=== PATIENT | male | born 1995 | race Caucasian/White ===

== ENCOUNTER 2023-03-08 14:28 | Emergency (ER) | payer SELFPAY ==
[2023-03-08 14:41] VITALS: BP 132/81; PULSE 82; RESP 14; TEMP 37.1; O2SAT 99; BMI 25.1
--- NOTE | 2023-03-08 15:00 | PC.PHAR ---
pt states he takes no rx or otc medications-pt states he hasnt taken prazosin 5mg hs filled 05/14/22 30d/s propranolol 10mg bid prn filled 05/14/22 30d/s and sertraline 50mg 3 tabs daily filled 05/14/22 30d/s states not taken since may 2022
--- NOTE | 2023-03-08 15:04 | W.ED.UPPEXIN ---
HPI - Extremity Injury (Upper) General: Chief Complaint: Extremity Injury, Upper Stated Complaint: right hand injury, fall Time Seen by Provider: 03/08/23 14:48 Source: patient Mode of arrival: ambulatory Limitations: no limitations History of Present Illness: Patient is a 27-year-old male who presents to the emergency department complaining of right hand pain onset 0900 this morning. Patient was walking [place] the [place] when he suddenly tripped over a stick and fell onto his outstretched right hand. He states his right middle finger was reportedly dislocated, and he states he was able to pop it back into place. Since this he has had residual right third MCP pain with radiation into the palm. At rest, he states that the pain is throbbing on the ventral aspect of the hand, but making a fist causes pain on the dorsal aspect of the hand. He denies any numbness, weakness, tingling, bruising, or any other symptoms at this time. There is no pain beyond the hand into the wrist or forearm. He denies taking anything for pain or applying ice. He reports no other injuries at this time. complaint: injury to: right and hand Onset (ago): hour(s) Other Extremity Injury: Right: hand Other injuries: none Place: home Severity: moderate Relieving factors: immobilization Exacerbating factors: movement of extremity Context: fall Associated symptoms: Denies neck pain, numbness or weakness in extremities Review of Systems Const: Denies: fever(s) or chills Eyes: Denies: change in vision or blurry vision Card: Denies: chest pain, palpitations, irregular heart rhythm, lightheadedness, syncope or dyspnea on exertion Resp: Denies: dyspnea, productive cough or pain on inspiration GI: Denies: abdominal pain, nausea, vomiting, heartburn or diarrhea : Denies: difficulty urinating or dysuria Musc: Reports: extremity pain (Right hand) and extremity swelling (Right hand); Denies: neck pain or back pain Skin/Breast: Denies: rash Neuro: Denies: numbness in extremities or weakness in extremities Physical Exam Const: COMMON NORMALS: no acute distress, average body habitus, patient oriented x3, no limitations, healthy appearing, alert and well nourished HENMT: COMMON NORMALS: normocephalic and atraumatic HEAD & SCALP: normocephalic and atraumatic Neck/C-Spine: COMMON NORMALS: full ROM CERVICAL SPINE: No Cervical spine tenderness Back/Pelvis: COMMON NORMALS: thoracic and lumbar spine normal to inspection and no thoracic nor lumbar tenderness Extremity: COMMON NORMALS: capillary refill normal GENERAL: Yes normal exam except as noted RIGHT UPPER EXTREMITY: Yes hand & digits Right hand and digits: Yes inspection (Mild edema noted to the dorsal aspect of the right hand), Yes palpation (TTP of the right third MCP and distal third metacarpal), Yes ROM exam (Limited range of motion of 3rd digit due to pain near MCP/metacarpal) and Yes neurovascular exam (Neurovascularly intact) Neuro: COMMON NORMALS: patient oriented x3, moves all extremities, no focal motor deficits and no sensory deficits noted SENSORIUM/ORIENTATION: Yes alert Skin: TRAUMA: no lacerations or abrasions Course Vital Signs: Vital signs: Vital Signs Temperature 98.8 F 03/08/23 14:41 Pulse Rate 82 03/08/23 14:41 Respiratory Rate 14 03/08/23 14:41 Blood Pressure 132/81 03/08/23 14:41 Pulse Oximetry 99 03/08/23 14:41 Oxygen Delivery Me thod Room Air 03/08/23 14:41 MDM - Extremity Injury (Upper) Medical Decision Making XR showing a nondisplaced midshaft third metacarpal fracture. Patient will be placed in a splint and will follow-up with orthopedics. [facility] management referral made for this. He states he has [facility] so he will speak to the [facility] to see if they want him to follow-up with anyone in particular. He denies needing any pain medication prescription. Discharge Plan Discharge Patient Disposition: Home Clinical Impression: Fracture, metacarpal Qualifiers: Encounter type: initial encounter Metacarpal bone: third Fracture type: closed Metacarpal location: shaft Fracture alignment: nondisplaced Laterality: right Qualified Code(s): S62.352A - Nondisplaced fracture of shaft of third metacarpal bone, right hand, initial encounter for closed fracture Condition: Stable Prescriptions: No Action No Known Home Medications Discharge Orders: Discharge ED (Routine); Ordered 03/08/23 Ordered By: Shellie Waddell Patient Instructions: Hand Fracture (DC) Activity Restrictions/Additional Instructions: Please keep on splint until follow-up with orthopedic. As we discussed, you will discussed with the [facility] in regards to specialty follow-up. You may take [id number] ibuprofen or Tylenol for pain as needed. Coding Level of Care Code ED Geospatial Developer for José Miguel Clayton
--- NOTE | 2023-03-08 15:10 | XR_ITS ---
WS: [id number] RIGHT HAND: 3 VIEW(S) TECHNIQUE: PA, oblique and lateral. HISTORY: hand trauma/possible dislocation COMPARISON: None available. Acute fractures through the mid third metacarpal diaphysis. No significant displacement. No additiona l fractures. Mild soft tissue edema along the dorsal surface of the hand. IMPRESSION: Nondisplaced fracture mid diaphysis third metacarpal.
--- NOTE | 2023-03-09 10:25 | DCPLANNER ---
Addendum entered by Loraine Cervantes 03/26/23 10:36: Patient did attend this appointment with ortho Addendum entered by Loraine Cervantes 03/24/23 14:14: Patient has a follow up appointment scheduled for February at 10:00 with Blake Azar at ortho. 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 He has to get a primary care provider with them (he said he tried to call [facility] today also but they didnt answer so he will try again) He said he will discuss the fx with that provider and then we can take it from there after he gets established. Original Note: pig farm manager had message to schedule a follow up appointment for patient with ortho. pig farm manager sent patients information to the front office staff at ortho. Patients information will be printed and reviewed. Clinic will call patient with appointment information.
--- NOTE | 2023-03-09 13:19 | DCPLANNER ---
music store manager called patient due to no primary care physician - patient stated that he sees Tracee at the [facility].
== END 2023-03-08 16:25 | disposition home or self-care (01) ==
PROVIDERS: Emergency Provider Physician Assistant; PCP Nurse Practitioner
DX: S62.352A Nondisplaced fracture of shaft of third metacarpal bone, right hand, initial encounter for closed fracture (principal); W01.0XXA Fall on same level from slipping, tripping and stumbling without subsequent striking against object, initial encounter
CPT/HCPCS: 73130; 99283

== ENCOUNTER → 2023-03-25 09:35 | Outpatient (BNVA) | payer OTHER, SELFPAY | PROVIDERS: PCP Nurse Practitioner; Referring Provider Emergency Medicine Emergency Medical Services; Visit Provider Physician Assistant | DX: S62.302A Unspecified fracture of third metacarpal bone, right hand, initial encounter for closed fracture; W19.XXXA Unspecified fall, initial encounter | CPT/HCPCS: 73130 ==

== ENCOUNTER 2023-03-25 15:56 | Outpatient (CLI) | payer OTHER, SELFPAY | END 2023-03-25 15:57 | disposition home or self-care (01) | LOC: SPT 15:56 | PROVIDERS: PCP Nurse Practitioner; Visit Provider Physician Assistant | DX: Z46.89 Encounter for fitting and adjustment of other specified devices (principal); S62.352D Nondisplaced fracture of shaft of third metacarpal bone, right hand, subsequent encounter for fracture with routine healing; X58.XXXD Exposure to other specified factors, subsequent encounter | CPT/HCPCS: 26600; 97760; 99213; L3984 ==

== ENCOUNTER → 2023-04-06 10:10 | Outpatient (BNVA) | payer OTHER, SELFPAY | PROVIDERS: PCP Nurse Practitioner; Visit Provider Physician Assistant | DX: S62.302A Unspecified fracture of third metacarpal bone, right hand, initial encounter for closed fracture (principal); W19.XXXA Unspecified fall, initial encounter | CPT/HCPCS: 73130; 99213 ==

== ENCOUNTER 2023-07-01 15:56 | Emergency (ER) | payer OTHER, SELFPAY ==
--- NOTE | 2023-07-01 15:58 | XRR_ITS ---
PROCEDURE INFORMATION: Exam: XR Left Hand Exam date and time: 07/01/2023 5:05 PM Age: 27 years old Clinical indication: Injury or trauma; Other: Bleeding; Additional info: Thumb injury TECHNIQUE: Imaging protocol: Radiologic exam of the left hand. Views: 3 or more views. COMPARISON: No relevant prior studies available. FINDINGS: Bones/joints: Normal. Soft tissues: Normal. XR/XR hand LT min 3V* [id number] IMPRESSION: No acute findings.
[2023-07-01 15:59] VITALS: BP 112/71; PULSE 81; RESP 16; TEMP 36.7; O2SAT 99; BMI 24.3
--- NOTE | 2023-07-01 16:05 | ED_ITS ---
HPI - Extremity Problem General: Chief complaint: Extremity Injury, Upper Stated complaint: left thumb injury Time Seen by Provider: 07/01/23 16:04 History of Present Illness: 27-year-old male patient comes in with i njury to the left thumb. Patient was using a band saw and caught the edge of the thumb with a band saw injury in the lateral aspect of the thumb. Patient has normal range of motion of the thumb. Patient came in due to persistent bleeding. Review of Systems General: Reports: 10 or more systems reviewed and unremarkable except in HPI and below Musc: Reports: extremity pain Skin/Breast: Reports: new lesions Physical Exam Const: COMMON NORMALS: alert HENMT: COMMON NORMALS: normocephalic HEAD & SCALP: normocephalic Neck/C-Spine: COMMON NORMALS: full ROM Resp: COMMON NORMALS: normal respiratory effort and clear to auscultation bilaterally AUSCULTATION: clear to auscultation bilaterally Cardio: COMMON NORMALS: regular rate and regular rhythm RATE: regular rate RHYTHM: regular rhythm GI: COMMON NORMALS: Soft to palpation PALPATION: Yes Soft to palpation Extremity: LEFT UPPER EXTREMITY: Yes hand & digits (Avulsion of the skin to the lateral aspect of the distal thumb involv nail) Neuro: SENSORIUM/ORIENTATION: Yes alert Skin: NAILS: other (Lateral nail avulsion distal left thumb) Course Vital Signs: Vital signs: Vital Signs Temperature 98.1 F 07/01/23 15:59 Pulse Rate 81 07/01/23 15:59 Respiratory Rate 16 07/01/23 15:59 Blood Pressure 112/71 07/01/23 15:59 Pulse Oximetry 99 07/01/23 15:59 Oxygen Delivery Me thod Room Air 07/01/23 15:59 MDM - Extremity (Nontraumatic) Medical Decision Making Patient comes in for injury to the left thumb. On exam patient has some skin loss and lateral nail loss of the left distal thumb. Normal range of motion of the tendon. Bleeding is controlled with light pressure. Differential diagnosis includes but not limited to amputation, avulsion of the skin, fracture. X-ray noted no bony abnormality. Wound was covered with Vaseline gauze and light pressure dressing. Bleeding was controlled. Patient be continued on cephalexin for antibiotic coverage due to the nature of the wound. Patient was given 5 tablets of hydrocodone for severe pain. Patient was recommended to follow-up with primary care in 3 to 5 days for recheck. Recommend return to the ER for new concerns or worsening symptoms. XR interpretation done by ED provider, pending radiology final review Discharge Plan Discharge Patient Disposition: Home Clinical Impression: Avulsion of skin of finger Qualifiers: Encounter type: initial encounter Qualified Code(s): S61.209A - Unspecified open wound of unspecified finger without damage to nail, initial encounter Condition: Stable Prescriptions: New cephalexin 500 mg capsule 500 mg PO TID 7 Days Qty: 21 0RF hydrocodone-acetaminophen 5-325 mg tablet 1 tab PO Q6H PRN (Reason: pain (scale score 7-10)) Qty: 5 0RF No Action (DME) Radial Gutter Fast Form Splint See Rx Instructions .Route .MEDSUPPLY Qty: 1 0RF Rx Instructions: As directed Discharge Orders: Discharge ED (Routine); Ordered 07/01/23 Ordered By: Sachin Lawrence Referrals: Alton Easley, HEENAC [Primary Care Provider] - Discharge Diet: Usual diet Discharge Activity: Increase activity as tolerated Patient Instructions: Wound Care (General) Activity Restrictions/Additional Instructions: Keep wound clean and dry. You can leave the dressing on and change as needed as long as it stays clean and dry. When changing the dressing clean the wound gently with mild soap and water and then recover with bacitracin antibiotic ointment and dressing. Follow-up with primary care in 3 to 5 days for recheck. Return to ED for new concerns. Coding Level of Care Code ED Blind Slat Stapling Machine Operator for José Miguel Clayton
[2023-07-01] MEDS: ketorolac 30 mg/mL INJ IM (16:41)
== END 2023-07-01 17:32 | disposition home or self-care (01) ==
PROVIDERS: Emergency Provider Nurse Practitioner Family; PCP Nurse Practitioner
DX: S61.102A Unspecified open wound of left thumb with damage to nail, initial encounter (principal); W31.2XXA Contact with powered woodworking and forming machines, initial encounter
CPT/HCPCS: 73130; 96372; 99284; A6446; J1885

== ENCOUNTER 2023-09-12 12:42 | Emergency (ER) | payer OTHER, SELFPAY ==
[2023-09-12 13:01] VITALS: BP 110/67; PULSE 67; RESP 16; TEMP 36.4; O2SAT 98; BMI 24.3
--- NOTE | 2023-09-12 13:08 | ED_ITS ---
HPI - Extremity Injury (Upper) General: Chief Complaint: Extremity Injury, Upper Stated Complaint: left hand ring finger lac Time Seen by Provider: 09/12/23 13:02 Source: patient Mode of arrival: ambulatory Limitations: no limitations History of Present Illness: Patient is a nice 27-year-old male who presents to ED today for evaluation of a left ring finger injury that he sustained just prior to arrival after crushing it between a wooden log and a rock. Patient's tetanus is up-to-date. He has no other injuries or complaints at this time. complaint: injury to: left and finger Onset (ago): hour(s) Other Extremity Injury: Left: fingers Other injuries: none Place: home Severity: moderate Relieving factors: none Exacerbating factors: none Context: crush Associated symptoms: Reports no associated symptoms Treatments prior to arrival: bandage Review of Systems Musc: Reports: extremity pain (L 4th distal finger); Denies: joint pain or joint swelling Skin/Breast: Reports: other (crush injury/laceration L finger) Neuro: Denies: numbness in extremities or sensory changes Physical Exam Const: COMMON NORMALS: average body habitus, no limitations, healthy appearing, alert and well nourished Extremity: COMMON NORMALS: capillary refill normal GENERAL: Yes normal exam except as noted LEFT UPPER EXTREMITY: Yes hand & digits (crush injury to d istal tip L 4th finger) Left hand and digits: Yes inspection (laceration to palmar tip extending around involving nail bed), Yes ROM (normal ROM to MCP, PIP, and DIP joints of finger) and Yes neurovascular exam (normal) Neuro: COMMON NORMALS: moves all extremities, no focal motor deficits and no sensory deficits noted SENSORIUM/ORIENTATION: Yes alert Skin: NARRATIVE SKIN EXAM: see above Procedures Laceration Laceration 1: Site: hand (L ring finger) Side (If applicable): left Size (cm): 2.0 Description: irregular Depth: simple, single layer Local Anesthetic: lidocaine 2% (digital block) Amount of anesthesia used (mL): 4.0 Pre-repair: wound explored and irrigated extensively Skin layer closed with: nylon Size (cm): 4-0 Number of sutures: 4 Technique: simple, interrupted Course Vital Signs: Vital signs: Vital Signs Temperature 97.5 F L 09/12/23 13:01 Pulse Rate 67 09/12/23 13:01 Respiratory Rate 16 09/12/23 13:01 Blood Pressure 110/67 09/12/23 13:01 Pulse Oximetry 98 09/12/23 13:20 Oxygen Delivery Me thod Room Air 09/12/23 13:20 MDM - Extremity Injury (Upper) Medical Decision Making Wound was copiously irrigated and repaired as documented. He has an open tuft fracture of the left ring finger. Tetanus is up-to-date. He was given 1 g Ancef prior to discharge and be placed on antibiotics and will follow-up with orthopedics. Medical Records I reviewed the patient's medical records. Lab Data Radiology Impressions Finger X-Ray 09/12/23 13:12 IMPRESSION: Comminuted fracture of the left index, and suspected subungual injury. All radiology interpretation(s) finalized by discharge Discharge Plan Discharge Patient Disposition: Home Clinical Impression: Open fracture of tuft of distal phalanx of finger Condition: Stable Prescriptions: New cephalexin 500 mg capsule 500 mg PO Q6H 7 Days Qty: 28 0RF No Action (DME) Radial Gutter Fast Form Splint See Rx Instructions .Route .MEDSUPPLY Qty: 1 0RF Rx Instructions: As directed hydrocodone-acetaminophen 5-325 mg tablet 1 tab PO Q6H PRN (Reason: pain (scale score 7-10)) Qty: 5 0RF Discharge Orders: Discharge ED (Routine); Ordered 09/12/23 Ordered By: Shellie Waddell Referrals: Alton Easley, [facility] [Primary Care Provider] - Patient Instructions: Finger Fracture (ED), Finger Laceration (ED) Activity Restrictions/Additional Instructions: Keep wound/laceration clean with warm soap and water twice daily. Monitor for signs of infection such as redness, swelling, increased pain, or drainage. Please seek medical re-evaluation if these occur. If you received sutures today these will need to be removed (unless you were told by the provider that they are absorbable). The provider should have discussed with you the length of time until removal-7 TO 10 DAYS. As we discussed case management should follow-up with you this week to set you up with your follow-up orthopedic appointment. Sutures will most likely be removed at this visit. Coding Level of Care Code ED Insole Channeler for José Miguel Clayton
--- NOTE | 2023-09-12 13:12 | XRR_ITS ---
PROCEDURE INFORMATION: Exam: XR Left Finger(s) Exam date and time: 09/12/2023 1:22 PM Age: 27 years old Clinical indication: Injury or trauma; Middle finger; Patient HX: Laceration to distal left 3rd digit TECHNIQUE: Imaging protocol: Radiologic exam of the left fingers. Views: Minimum 2 views. COMPARISON: No relevant prior studies available. FINDINGS: Bones/joints: Comminuted fracture of the left index, and suspected subungual injury. Soft tissues: Comminuted fracture of the distal left index, likely involving the nail as well. Distal left index soft tissue swelling. XR/XR finger LT min 2V [id number] IMPRESSION: Comminuted fracture of the left index, and suspected subungual injury.
[2023-09-12 13:20] VITALS: O2SAT 98
[2023-09-12] MEDS: ceFAZolin 1,000 MG in water for injection-sterile 2.5 ML 2 MG IM (14:39)
--- NOTE | 2023-09-12 20:59 | PC.SOCIAL ---
[facility] to [place] for [facility] for ortho follow up.
--- NOTE | 2023-09-13 08:29 | DCPLANNER ---
Message was sent to ortho on 09/13/23 at 0829. Clinic to contact patient
--- NOTE | 2023-09-15 10:21 | PC.NURSE ---
RX CALLED INTO [facility].
== END 2023-09-12 14:39 | disposition home or self-care (01) ==
PROVIDERS: Emergency Provider Physician Assistant; PCP Nurse Practitioner
DX: S62.635B Displaced fracture of distal phalanx of left ring finger, initial encounter for open fracture (principal); W23.0XXA Caught, crushed, jammed, or pinched between moving objects, initial encounter
CPT/HCPCS: 12001; 73140; 96372; 99284; A6446; J0690

== ENCOUNTER → 2023-09-20 08:42 | Outpatient (BNVA) | payer OTHER, SELFPAY | PROVIDERS: PCP Nurse Practitioner; Referring Provider Physician Assistant; Visit Provider Specialist | DX: S62.633B Displaced fracture of distal phalanx of left middle finger, initial encounter for open fracture; W23.0XXA Caught, crushed, jammed, or pinched between moving objects, initial encounter | CPT/HCPCS: 26750; 73130; 99203 ==

== ENCOUNTER 2024-04-24 10:01 | Emergency (ER) | payer OTHER, SELFPAY ==
--- NOTE | 2024-04-24 10:08 | XR_ITS ---
WS: [id number] Exam: XR chest 1V portable [id number] Date/Time of Exam: 04/24/2024 10:11 AM Reason For Exam: cough No previous exams. There are interstitial and airspace infiltrates in the mid and lower RIGHT lung. This could represent active pneumonia or chronic change. There are nodular densities scattered throughout both lungs some are calcified but others are indeterminate. Heart size is normal. The mediastinum and osseous thorax are intact. No pleural effusion is seen. Bony structures are unremarkable. XR/XR chest 1V portable [id number] IMPRESSION: 1. Airspace and interstitial infiltrate in the mid and lower RIGHT lung. This c ould represent chronic change or active pneumonia. 2. Nodular densities scattered throughout both lungs. Some are calcified others are indeterminate. Follow-up chest radiograph in 7 to 10 days would be recommended for ongoing delilah luation. Ultimately, contrast CT scan of the chest may be necessary for more co mplete evaluation.
--- NOTE | 2024-04-24 10:26 | ECG_ITS ---
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 Measurements Intervals [place] [facility] Rate: 87 P: 75 [place]: 141 QRS: 87 QRSD: 98 T: 34 QT: 335 QTc: 405 Interpretive Statements SINUS RHYTHM NONSPECIFIC T-WAVE ABNORMALITY No previous ECG available for comparison Electronically Signed On 04-24-2024 18:54:36 CDT by Hipolito Ward M.D. [id number]
[2024-04-24 10:27] VITALS: BP 115/70; PULSE 89; TEMP 36.7; O2SAT 100; BMI 21.5
[2024-04-24 11:38] VITALS: BP 138/82; RESP 16; O2SAT 100
--- NOTE | 2024-04-24 11:39 | ED_ITS ---
Documented by User: CHRISTOFER Spann 04/25/24 08:57 HPI - URI/Sore Throat 2 General: Chief Complaint: Upper Respiratory Infection Stated Complaint: cough Time Seen by Provider: 04/24/24 10:38 Source: patient Mode of arrival: ambulatory Limitations: no limitations History of Present Illness: Patient is a nice 28-year-old male who presents to ED today stating he has had pneumonia for approximately 3 months. [facility] 3 rounds of different antibiotics all without resolution of symptoms. He was reportedly seen there this morning and referred to the emergency department for further evaluation. He states he does not remember all of the names of the antibiotics but does remember one of them was azithromycin. He states he continues to have a cough, shortness of breath, and generally feeling unwell. He states he is an otherwise healthy 28-year-old male. No history of immunosuppression/AIDS/HIV. States he does not smoke. States he received all of his childhood immunizations. 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 MD elicited complaint: cough and other (shortness of breath, not feeling well) Pertinent past history: other (pneumonia) Onset (ago): month(s) Consistency: constant Severity: moderate Able to tolerate fluids by mouth: Yes Exacerbating factors: nothing Relieving factors: nothing Associated symptoms: Reports chest pain; Deny abdominal pain, chills, diarrhea, ear or mastoid pain, fever(s), headache(s), nasal congestion, nausea, sinus pain or vomiting Treatments prior to arrival: antibiotics Related Data Previous Rx's Medication Instructions Recorded Radial Gutter Fast Form Splint #1 ea 03/25/23 levofloxacin 500 mg tablet 500 mg PO DAILY 10 days #10 tabs 04/24/24 prednisone 10 mg tablet 60 mg (6 x 10 mg) PO DAILY 5 days 04/24/24 #30 tabs Allergies Allergy/AdvReac Type Severity Reaction Status Date / Time No Known Allergies Allergy Verified 04/24/24 10:31 Review of Systems 2 Const: Reports: body aches and fatigue; Denies: fever(s), chills or malaise Eyes: Denies: change in vision, blurry vision, photophobia, floaters or seeing flashes ENMT: Denies: throat pain, odynophagia, ear or mastoid pain, nasal discharge, nasal congestion or sinus pain Card: Reports: chest pain; Denies: palpitations, irregular heart rhythm, edema, swelling of feet/ankles, lightheadedness, syncope, pre-syncope, dyspnea on exertion, orthopnea, leg pain with exertion or acrocyanosis Resp: Reports: dyspnea, non-productive cough, pain on inspiration and chest congestion; Denies: wheezing or hemoptysis GI: Denies: abdominal pain, nausea, vomiting or diarrhea : Denies: flank pain, difficulty urinating, dysuria, urinary frequency, urinary urgency or urinary hesitancy Musc: Denies: neck pain, back pain, extremity pain, joint pain or joint swelling Skin/Breast: Denies: rash Neuro: Denies: headache(s), numbness in extremities, weakness in extremities, sensory changes or dizziness Physical Exam 2 Const: COMMON NORMALS: no acute distress, average body habitus, patient oriented x3, no limitations, healthy appearing, alert and well nourished G ENERAL APPEARANCE: cooperative ORIENTATION/CONSCIOUSNESS: Yes awake, Yes oriented to person, Yes oriented to place and Yes oriented to time HENMT: FACE & SINUS: normal facial exam Neck/C-Spine: COMMON NORMALS: no lymphadenopathy Chest: COMMONS NORMALS: normal inspection of the chest and normal palpation of entire chest wall Resp: COMMON NORMALS: normal respiratory effort and clear to auscultation bilaterally AUSCULTATION: clear to auscultation bilaterally Cardio: COMMON NORMALS: regular rate and regular rhythm RATE: regular rate RHYTHM: regular rhythm GI: COMMON NORMALS: non-tender and No hepatosplenomegaly present PALPATION: Yes No hepatosplenomegaly present Extremity: GENERAL: Yes normal exam except as noted Neuro: ANTONELLA COMA SCALE: document GCS findings Antonella coma scale eye opening: Spontaneous Antonella coma scale verbal response: Orientated Henley coma scale motor response: Obey commands Antonella coma scale total score: 15 COMMON NORMALS: patient oriented x3, moves all extremities, no focal motor deficits and no sensory deficits noted SENSORIUM/ORIENTATION: Yes alert, Yes oriented to person, Yes oriented to place and Yes oriented to time Skin: COMMON NORMALS: no rashes or lesions noted GENERAL SKIN EXAM: no rashes or lesions noted Course 2 Vital Signs: Vital signs: Vital Signs Temperature 98.1 F 04/24/24 10:27 Pulse Rate 85 04/24/24 13:56 Respiratory Rate 16 04/24/24 13:55 Blood Pressure 138/82 04/24/24 13:56 Pulse Oximetry 98 04/24/24 13:56 Oxygen Delivery Me thod Room Air 04/24/24 13:55 MDM - URI/Sore Throat Medical Decision Making Patient is a 28-year-old male here for complaints of pneumonia x 3 months. We were able to get pharmacy records and it looks like he was on antibiotics back in August. Patient feels like this too was for pneumonia so thinks maybe clinical scenario has been going on longer than 3 months. I do not see where he was on other antibiotics except recently he was placed on azithromycin. Due to complaint of continued abnormal CXR imaging, decision was made for CT imaging. He does have abnormal findings here. Radiologist commented that these could be pneumonia, atelectasis, or neoplasm. Differential was broad including fungal, endobronchial pneumonia, TB, mycobacterium avium. Discussed case with Dr. Santana. We will place patient on a fluoroquinolone and steroids and have him follow-up with pulmonology for possible bronchoscopy. Vital signs are stable. He is satting 100% on room air. He does not require emergent hospitalization at this time. Return to ED precautions given. Medical Records I reviewed the patient's medical records. Lab Data I reviewed the patient's lab results. 04/24/24 12:07 04/24/24 12:07 Radiology Impressions Chest X-Ray 04/24/24 10:08 IMPRESSION: 1. Airspace and interstitial infiltrate in the mid and lower RIGHT lung. This could represent chronic change or active pneumonia. 2. Nodular densities scattered throughout both lungs. Some are calcified others are indeterminate. Follow-up chest radiograph in 7 to 10 days would be recommended for ongoing evaluation. Ultimately, contrast CT scan of the chest may be necessary for more complete evaluation. Chest CT 04/24/24 11:57 IMPRESSION: 1. Extensive bilateral tree-in-bud airspace disease with spiculated reticular nodular opacifications. Much greater involving the RIGHT lung. There is a dense area of consolidation at the RIGHT hilum extending into the RIGHT lower lobe with air bronchograms with the differential including pneumonia and atelectasis. Neoplasm also needs to be excluded. 2. Mediastinal and hilar enlarged lymph nodes are probably reactive. 3. Differential for these pulmonary findings includes infection such as fungal or endobronchial pneumonia. TB and Mycobacterium avium. Additional etiologies are aspiration and fungal infections. Recommend close follow-up to resolution. Bronchoscopy may be necessary. Laboratory Results WBC 5.84 10^3/uL (3.29-11.43) 04/24/24 12:07 RBC 5.33 10^6/uL (3.85-5.65) 04/24/24 12:07 Hgb 16.00 g/dL (11.27-16.99) 04/24/24 12:07 Hct 46.3 % (37-53) 04/24/24 12:07 MCV 86.9 fl (82-101) 04/24/24 12:07 MCH 30.0 pg (27-33) 04/24/24 12:07 MCHC 34.6 g/dL (30-55) 04/24/24 12:07 RDW 12.2 % (12.1-15.1) 04/24/24 12:07 Plt Count 249 10^3/cmm (157-399) 04/24/24 12:07 MPV 9.4 fL (7.4-10.4) 04/24/24 12:07 Neut % (Auto) 65.4 % 04/24/24 12:07 Lymph % (Auto) 24.1 % 04/24/24 12:07 [place] % (Auto) 8.9 % 04/24/24 12:07 Eos % (Auto) 0.9 % 04/24/24 12:07 Baso % (Auto) 0.7 % 04/24/24 12:07 Neut # (Auto) 3.82 10^3/uL (1.8-7.7) 04/24/24 12:07 Lymph # (Auto) 1.4 10^3/uL (0.8-4.8) 04/24/24 12:07 [place] # (Auto) 0.5 10^3/uL (0.2-0.9) 04/24/24 12:07 Eos # (Auto) 0.1 10^3/uL (0.0-0.8) 04/24/24 12:07 Baso # (Auto) 0.0 10^3/uL (0.0-0.1) 04/24/24 12:07 Nucleated RBC % (auto) 0 % 04/24/24 12:07 Nucleated RBCs # 0.0 /100WBC 04/24/24 12:07 Sodium 141 mmol/L (136-145) 04/24/24 12:07 Potassium 3.9 mmol/L (3.5-5.1) 04/24/24 12:07 Chloride 102 mmol/L (98-107) 04/24/24 12:07 Carbon Dioxide 29 mmol/L (22-29) 04/24/24 12:07 Anion Gap 13.9 (5-19) 04/24/24 12:07 BUN 14 mg/dL (6-20) 04/24/24 12:07 Creatinine 1.0 mg/dL (0.7-1.2) 04/24/24 12:07 GFR Calculation 87.7 mL/min (90-130) L 04/24/24 12:07 Glucose 69 mg/dL (65-115) 04/24/24 12:07 Calculated Osmolality 291 mOsm/kg (285-295) 04/24/24 12:07 Calcium 9.5 mg/dL (8.5-10.5) 04/24/24 12:07 Total Bilirubin 0.6 mg/dL (0.15-1.2) 04/24/24 12:07 AST 15 U/L (0-40) 04/24/24 12:07 ALT 8 U/L (0-41) 04/24/24 12:07 Alkaline Phosphatase 78 U/L (40-130) 04/24/24 12:07 Total Protein 7.8 g/dL (6.6-8.7) 04/24/24 12:07 Albumin 4.7 g/dL (3.5-5.2) 04/24/24 12:07 Globulin 3.1 g/dL (1.3-4.6) 04/24/24 12:07 Coronavirus (PCR) Negative (Negative) 04/24/24 10:56 Influenza A (PCR) Negative (Negative) 04/24/24 10:56 Influenza Type B (PCR) Negative (Negative) 04/24/24 10:56 RSV (PCR) Negative (Negative) 04/24/24 10:56 All radiology interpretation(s) finalized by discharge Discharge Plan Discharge Patient Disposition: Home Clinical Impression: Abnormal chest CT Condition: Stable Prescriptions: New prednisone 10 mg tablet 60 mg PO DAILY 5 Days Qty: 30 0RF levofloxacin 500 mg tablet 500 mg PO DAILY 10 Days Qty: 10 0RF No Action (DME) Radial Gutter Fast Form Splint See Rx Instructions .Route .MEDSUPPLY Qty: 1 0RF Rx Instructions: As directed Discharge Orders: Discharge ED (Routine); Ordered 04/24/24 Ordered By: Shellie Waddell Referrals: Alton Easley, [employer] [Primary Care Provider] - Activity Restrictions/Additional Instructions: As we discussed, we have case management set you up with an appointment with pulmonology for further evaluation of your continued abnormal chest x-ray imaging and CT scans. Coding Level of Care Code ED Camera Assembler for Chg Fwd Documented by User: Noel Santana DO 04/25/24 11:51 HPI - URI/Sore Throat 2 General: Chief Complaint: Upper Respiratory Infection Stated Complaint: cough Time Seen by Provider: 04/24/24 10:38 Related Data Previous Rx's Medication Instructions Recorded Radial Gutter Fast Form Splint #1 ea 03/25/23 levofloxacin 500 mg tablet 500 mg PO DAILY 10 days #10 tabs 04/24/24 prednisone 10 mg tablet 60 mg (6 x 10 mg) PO DAILY 5 days 04/24/24 #30 tabs Allergies Allergy/AdvReac Type Severity Reaction Status Date / Time No Known Allergies Allergy Verified 04/24/24 10:31 Physical Exam 2 Neuro: ANTONELLA COMA SCALE: document GCS findings Henley coma scale total score: 15 Course 2 Vital Signs: Vital signs: Vital Signs Temperature 98.1 F 04/24/24 10:27 Pulse Rate 85 04/24/24 13:56 Respiratory Rate 16 04/24/24 13:55 Blood Pressure 138/82 04/24/24 13:56 Pulse Oximetry 98 04/24/24 13:56 Oxygen Delivery Me thod Room Air 04/24/24 13:55 MDM - URI/Sore Throat Medical Decision Making Patient is a 28-year-old male here for complaints of pneumonia x 3 months. We were able to get pharmacy records and it looks like he was on antibiotics back in August. Patient feels like this too was for pneumonia so thinks maybe clinical scenario has been going on longer than 3 months. I do not see where he was on other antibiotics except recently he was placed on azithromycin. Due to complaint of continued abnormal CXR imaging, decision was made for CT imaging. He does have abnormal findings here. Radiologist commented that these could be pneumonia, atelectasis, or neoplasm. Differential was broad including fungal, endobronchial pneumonia, TB, mycobacterium avium. Discussed case with Dr. Santana. We will place patient on a fluoroquinolone and steroids and have him follow-up with pulmonology for possible bronchoscopy. Vital signs are stable. He is satting 100% on room air. He does not require emergent hospitalization at this time. Return to ED precautions given. Chart reviewed and patient discussed with midlevel. Agree with assessment and plan. Lab Data 04/24/24 12:07 04/24/24 12:07 Radiology Impressions Chest X-Ray 04/24/24 10:08 IMPRESSION: 1. Airspace and interstitial infiltrate in the mid and lower RIGHT lung. This could represent chronic change or active pneumonia. 2. Nodular densities scattered throughout both lungs. Some are calcified others are indeterminate. Follow-up chest radiograph in 7 to 10 days would be recommended for ongoing evaluation. Ultimately, contrast CT scan of the chest may be necessary for more complete evaluation. Chest CT 04/24/24 11:57 IMPRESSION: 1. Extensive bilateral tree-in-bud airspace disease with spiculated reticular nodular opacifications. Much greater involving the RIGHT lung. There is a dense area of consolidation at the RIGHT hilum extending into the RIGHT lower lobe with air bronchograms with the differential including pneumonia and atelectasis. Neoplasm also needs to be excluded. 2. Mediastinal and hilar enlarged lymph nodes are probably reactive. 3. Differential for these pulmonary findings includes infection such as fungal or endobronchial pneumonia. TB and Mycobacterium avium. Additional etiologies are aspiration and fungal infections. Recommend close follow-up to resolution. Bronchoscopy may be necessary. Laboratory Results WBC 5.84 10^3/uL (3.29-11.43) 04/24/24 12:07 RBC 5.33 10^6/uL (3.85-5.65) 04/24/24 12:07 Hgb 16.00 g/dL (11.27-16.99) 04/24/24 12:07 Hct 46.3 % (37-53) 04/24/24 12:07 MCV 86.9 fl (82-101) 04/24/24 12:07 MCH 30.0 pg (27-33) 04/24/24 12:07 MCHC 34.6 g/dL (30-55) 04/24/24 12:07 RDW 12.2 % (12.1-15.1) 04/24/24 12:07 Plt Count 249 10^3/cmm (157-399) 04/24/24 12:07 MPV 9.4 fL (7.4-10.4) 04/24/24 12:07 Neut % (Auto) 65.4 % 04/24/24 12:07 Lymph % (Auto) 24.1 % 04/24/24 12:07 [place] % (Auto) 8.9 % 04/24/24 12:07 Eos % (Auto) 0.9 % 04/24/24 12:07 Baso % (Auto) 0.7 % 04/24/24 12:07 Neut # (Auto) 3.82 10^3/uL (1.8-7.7) 04/24/24 12:07 Lymph # (Auto) 1.4 10^3/uL (0.8-4.8) 04/24/24 12:07 [place] # (Auto) 0.5 10^3/uL (0.2-0.9) 04/24/24 12:07 Eos # (Auto) 0.1 10^3/uL (0.0-0.8) 04/24/24 12:07 Baso # (Auto) 0.0 10^3/uL (0.0-0.1) 04/24/24 12:07 Nucleated RBC % (auto) 0 % 04/24/24 12:07 Nucleated RBCs # 0.0 /100WBC 04/24/24 12:07 Sodium 141 mmol/L (136-145) 04/24/24 12:07 Potassium 3.9 mmol/L (3.5-5.1) 04/24/24 12:07 Chloride 102 mmol/L (98-107) 04/24/24 12:07 Carbon Dioxide 29 mmol/L (22-29) 04/24/24 12:07 Anion Gap 13.9 (5-19) 04/24/24 12:07 BUN 14 mg/dL (6-20) 04/24/24 12:07 Creatinine 1.0 mg/dL (0.7-1.2) 04/24/24 12:07 GFR Calculation 87.7 mL/min (90-130) L 04/24/24 12:07 Glucose 69 mg/dL (65-115) 04/24/24 12:07 Calculated Osmolality 291 mOsm/kg (285-295) 04/24/24 12:07 Calcium 9.5 mg/dL (8.5-10.5) 04/24/24 12:07 Total Bilirubin 0.6 mg/dL (0.15-1.2) 04/24/24 12:07 AST 15 U/L (0-40) 04/24/24 12:07 ALT 8 U/L (0-41) 04/24/24 12:07 Alkaline Phosphatase 78 U/L (40-130) 04/24/24 12:07 Total Protein 7.8 g/dL (6.6-8.7) 04/24/24 12:07 Albumin 4.7 g/dL (3.5-5.2) 04/24/24 12:07 Globulin 3.1 g/dL (1.3-4.6) 04/24/24 12:07 Coronavirus (PCR) Negative (Negative) 04/24/24 10:56 Influenza A (PCR) Negative (Negative) 04/24/24 10:56 Influenza Type B (PCR) Negative (Negative) 04/24/24 10:56 RSV (PCR) Negative (Negative) 04/24/24 10:56 Discharge Plan Discharge Patient Disposition: Home Clinical Impression: Abnormal chest CT Condition: Stable Prescriptions: New prednisone 10 mg tablet 60 mg PO DAILY 5 Days Qty: 30 0RF levofloxacin 500 mg tablet 500 mg PO DAILY 10 Days Qty: 10 0RF No Action (DME) Radial Gutter Fast Form Splint See Rx Instructions .Route .MEDSUPPLY Qty: 1 0RF Rx Instructions: As directed Discharge Orders: Discharge ED (Routine); Ordered 04/24/24 Ordered By: Shellie Waddell Referrals: Alton Easley, [employer] [Primary Care Provider] - Activity Restrictions/Additional Instructions: As we discussed, we have case management set you up with an appointment with pulmonology for further evaluation of your continued abnormal chest x-ray imaging and CT scans. Coding Level of Care Code ED Camera Assembler for José Miguel Clayton
[2024-04-24 11:47] LABS: Covid PCR NEGATIVE (Negative); Influenza A NEGATIVE (Negative); Influenza B NEGATIVE (Negative); Respiratory Syncytial Virus Ce NEGATIVE (Negative)
--- NOTE | 2024-04-24 11:57 | CT_ITS ---
WS: [id number] CT chest w con* [id number] HISTORY: pneumonia x 3 months; not responding to abx TECHNIQUE: Axial imaging performed through the thorax. Coronal and sagittal reformats are submitted. All CT scans at [facility] use at least one of these dose optimization techniques: automated exposure control; mA and/or kV adjustment per patient size (includes targeted exams where dose is mat ched to clinical indication); or iterative reconstruction. CONTRAST: Omnipaque 350; 100 mL IV. DLP: 273.62 mGy.cm COMPARISON: Chest radiograph 04/24/2024 Lungs and central airway: Extensive bilateral scattered irregular nodules. Some of these nodules are spiculated. There is extensive tree-in-bud airspace disease. The most extensive areas of consolidatio n and tree-in-bud airspace disease is throughout the RIGHT lung involving all lobes. Dense area of co nsolidation centrally with air bronchograms beginning at the RIGHT hilum and extending into the RIGHT lower lobe along the fissure. Scattered reticulonodular opacifications throughout the LEFT lung but not as extensive. Pleura: Normal. No pleural effusion. Heart and pericardium: Normal size heart with no pericardial effusion. Mediastinum and roni: Mediastinal and hilar lymph nodes are identified. These lymph nodes are enlarge d and greatest at the RIGHT hilum measuring up to 12 mm. LEFT hilar and subcarinal lymph nodes also i dentified. Vessels: Normal size pulmonary artery and aorta. No pulmonary embolism is identified. Chest wall and lower neck: No soft tissue masses. Upper abdomen: Normal. Osseous structures: No destructive process. CT/CT chest w con* [id number] IMPRESSION: 1. Extensive bilateral tree-in-bud airspace disease with spiculated reticular nodular opacifications. Much greater involving the RIGHT lung. There is a dense area of consolidation at the RIGHT hilum extending into the RIGHT lower lobe w ith air bronchograms with the differential including pneumonia and atelectasis. Neoplasm also needs to be excluded. 2. Mediastinal and hilar enlarged lymph nodes are probably reactive. 3. Differential for these pulmonary findings includes infection such as fungal or endobronchial pneumonia. TB and Mycobacterium avium. Additional etiologies are aspiration and fungal infections. Recommend close follow-up to resolution. Bronchoscopy may be necessary.
[2024-04-24] MEDS: iohexol 350 mg/mL 500 mL Btl (per mL) IV (12:12)
[2024-04-24 12:24] LABS: Basophils % 0.7 %; Eosinophils # 0.1 10^3/uL (0.0-0.8); Eosinophils % 0.9 %; Hematocrit 46.3 % (37-53); Lymphocytes # 1.4 10^3/uL (0.8-4.8); Lymphocytes % 24.1 %; Mean Corpuscular HGB Conc 34.6 g/dL (30-55); Mean Corpuscular Volume 86.9 fl (82-101); Mean Platelet Volume 9.4 fL (7.4-10.4); Monocytes # 0.5 10^3/uL (0.2-0.9); Monocytes % 8.9 %; Neutrophils # 3.82 10^3/uL (1.8-7.7); Neutrophils % 65.4 %; Nucleated Red Blood Cells % 0 %; Platelet Count 249 10^3/cmm (157-399); Red Blood Count 5.33 10^6/uL (3.85-5.65); Red Cell Distribution Width 12.2 % (12.1-15.1); White Blood Count 5.84 10^3/uL (3.29-11.43)
[2024-04-24 12:43] LABS: Alanine Aminotransferase 8 U/L (0-41); Albumin Level 4.7 g/dL (3.5-5.2); Alkaline Phosphatase 78 U/L (40-130); Anion Gap 13.9 (5-19); Aspartate Amino Transferase 15 U/L (0-40); Blood Urea Nitrogen 14 mg/dL (6-20); Calcium 9.5 mg/dL (8.5-10.5); Carbon Dioxide 29 mmol/L (22-29); Chloride 102 mmol/L (98-107); Creatinine Clr Calc Pharmacy 108.4961; Globulin 3.1 g/dL (1.3-4.6); Glomerular Filtration Rate 87.7 mL/min (90-130); Glucose 69 mg/dL (65-115); Osmolality Calculated 291 mOsm/kg (285-295); Potassium 3.9 mmol/L (3.5-5.1); Sodium 141 mmol/L (136-145); Total Bilirubin 0.6 mg/dL (0.15-1.2); Total Protein 7.8 g/dL (6.6-8.7)
[2024-04-24 13:55] VITALS: RESP 16; O2SAT 98
[2024-04-24 13:56] VITALS: BP 138/82; PULSE 85; O2SAT 98
--- NOTE | 2024-04-27 08:10 | DCPLANNER ---
faxed packet to [facility]
== END 2024-04-24 14:04 | disposition home or self-care (01) ==
PROVIDERS: Emergency Provider Physician Assistant; PCP Nurse Practitioner
DX: R91.8 Other nonspecific abnormal finding of lung field (principal); R05.9 Cough, unspecified; Z87.01 Personal history of pneumonia (recurrent)
CPT/HCPCS: 0241U; 71045; 71260; 80053; 85025; 93005; 99285

== ENCOUNTER 2024-04-25 22:08 | Emergency (ER) | payer OTHER, SELFPAY ==
[2024-04-25 22:16] VITALS: BP 123/81; PULSE 95; RESP 18; TEMP 36.7; O2SAT 96
--- NOTE | 2024-04-25 22:18 | ECG_ITS ---
[facility] Test Date: 2024-04-25 Pat Name: Huan Willson Department: Room: Gender: Male Shut Off Worker: : 1995 Requested By: Anish Byrne Order Number: [id number] Marcie MD: Akil Troncoso M.D. Measurements Intervals [place] Rate: 90 P: 78 UT: 150 QRS: 83 QRSD: 98 T: 49 QT: 321 QTc: 394 Interpretive Statements SINUS RHYTHM WITH MARKED SINUS ARRHYTHMIA VOLTAGE CRITERIA FOR LVH [MEETS CRITERIA IN ONE OF: R(aVL), S(V1), R(V5), R(V5/V6)+S(V1)] NONSPECIFIC T-WAVE ABNORMALITY Compared to ECG 04/24/2024 10:26:43 Left ventricular hypertrophy now present T-wave abnormality still present Electronically Signed On 04-26-2024 23:36:16 CDT by Akil Troncoso M.D. [id number]
--- NOTE | 2024-04-25 22:18 | XRR_ITS ---
PROCEDURE INFORMATION: Exam: XR Chest Exam date and time: 04/25/2024 11:12 PM Age: 28 years old Clinical indication: Pain; Chest pressure; Additional info: Chest pain TECHNIQUE: Imaging protocol: Radiologic exam of the chest. Views: 1 view. COMPARISON: CT chest w con* [id number] 04/24/2024 12:09 PM FINDINGS: Lungs: Bilateral reticulonodular opacities, significantly more extensive throughout the right lung, with areas of confluence in the right lower lobe. Findings better appreciated on the recent CT from 04/24/2024. Pleural spaces: No sizable pleural effusion. No pneumothorax. Heart/Mediastinum: Unremarkable cardiomediastinal silhouette. Bones/joints: The osseous structures are unremarkable. XR/XR chest 1V portable [id number] IMPRESSION: Bilateral reticulonodular opacities, [id number], with areas of confluence in the right lower lobe. Findings not significantly changed compared to the prior study, allowing for differences in technique.
[2024-04-25 22:50] LABS: Basophils % 0.1 %; Hematocrit 40.7 % (37-53); Lymphocytes % 10.6 %; Mean Corpuscular HGB Conc 35.4 g/dL (30-55); Mean Corpuscular Volume 84.8 fl (82-101); Mean Platelet Volume 9.3 fL (7.4-10.4); Monocytes # 0.6 10^3/uL (0.2-0.9); Monocytes % 6.3 %; Neutrophils % 82.8 %; Nucleated Red Blood Cells % 0 %; Platelet Count 251 10^3/cmm (157-399); White Blood Count 8.94 10^3/uL (3.29-11.43)
--- NOTE | 2024-04-25 22:54 | ED_ITS ---
HPI - Chest Pain 2 General: Chief Complaint: Chest Pain Stated Complaint: CP Time Seen by Provider: 04/25/24 22:19 History of Present Illness: Patient presents to the ER with increased right-sided chest pain it is constant with episodes of sharpness and stabbing this when he takes a big deep breath or coughs. He was here yesterday and worked up for another pneumonia he was dealing with for last 4 months he is currently on levofloxacin 500 mg and prednisone 60 mg he did take both of those x 1 today. Today the chest pains are getting worse so he decided come back here for further evaluation. Related Data Previous Rx's Medication Instructions Recorded Radial Gutter Fast Form Splint #1 ea 03/25/23 levofloxacin 500 mg tablet 500 mg PO DAILY 10 days #10 tabs 04/24/24 prednisone 10 mg tablet 60 mg (6 x 10 mg) PO DAILY 5 days 04/24/24 #30 tabs meloxicam 7.5 mg tablet 7.5 mg PO .Twice daily #14 tabs 04/26/24 Allergies Allergy/AdvReac Type Severity Reaction Status Date / Time No Known Allergies Allergy Verified 04/25/24 22:19 Review of Systems 2 General: Reports: 10 or more systems reviewed and unremarkable except in HPI and below Physical Exam 2 Const: COMMON NORMALS: no acute distress, average body habitus, patient oriented x3, no limitations, healthy appearing, alert and well nourished HENMT: COMMON NORMALS: normocephalic, atraumatic, hearing grossly normal bilaterally, external ears normal, Normal external nose present and moist oral mucous membranes HEAD & SCALP: normocephalic and atraumatic NOSE: Normal external nose present EXTERNAL EAR: Yes external ears normal Neck/C-Spine: COMMON NORMALS: no JVD Chest: COMMONS NORMALS: normal inspection of the chest and normal palpation of entire chest wall Resp: COMMON NORMALS: normal respiratory effort, No retractions, No use of accessory muscles and clear to auscultation bilaterally AUSCULTATION: clear to auscultation bilaterally Cardio: COMMON NORMALS: no JVD, regular rate, regular rhythm, S1 normal heart sound present, S2 normal heart sound present, No gallops present (Cardio), No clicks present (Cardio), No murmurs present (Cardio) and No rub (Cardio) R ATE: regular rate RHYTHM: regular rhythm HEART SOUNDS: S1 normal heart sound present and S2 normal heart sound present GI: COMMON NORMALS: Normal to inspection, nondistended, normoactive bowel sounds present, Soft to palpation, non-tender, No hepatosplenomegaly present and no masses PALPATION: Yes Soft to palpation and Yes No hepatosplenomegaly present Neuro: COMMON NORMALS: patient oriented x3 SENSORIUM/ORIENTATION: Yes alert Course 2 Vital Signs: Vital signs: Vital Signs Temperature 98.0 F 04/25/24 22:16 Pulse Rate 92 04/25/24 22:56 Respiratory Rate 16 04/25/24 22:56 Blood Pressure 123/81 04/25/24 22:16 Pulse Oximetry 98 04/25/24 22:56 Oxygen Delivery Me thod Room Air 04/25/24 22:16 MDM - Chest Pain Medical Decision Making Patient was seen yesterday diagnosed with pneumonia, sent home on Levaquin and prednisone, come back today for worsening chest pain. Patient was worked up in standard chest pain fashion with EKG enzymes chest x-ray, all of which was essentially benign. Patient was given 1 dose of Toradol and his IV which she said helped pain. Patient be discharged home with a prescription for meloxicam with inflammation. 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 Differential Diagnosis Unlikely acute massive pulmonary embolism, acute respiratory failure, acute myocardial infarction, cardiac arrest or sudden cardiac Medical Records I reviewed the patient's medical records. Lab Data I reviewed the patient's lab results. 04/25/24 22:45 04/25/24 22:45 Radiology Impressions Chest X-Ray 04/25/24 22:18 IMPRESSION: Bilateral reticulonodular opacities, [id number]-left, with areas of confluence in the right lower lobe. Findings not significantly changed compared to the prior study, allowing for differences in technique. Laboratory Results WBC 8.94 10^3/uL (3.29-11.43) 04/25/24 22:45 RBC 4.80 10^6/uL (3.85-5.65) 04/25/24 22:45 Hgb 14.40 g/dL (11.27-16.99) 04/25/24 22:45 Hct 40.7 % (37-53) 04/25/24 22:45 MCV 84.8 fl (82-101) 04/25/24 22:45 MCH 30.0 pg (27-33) 04/25/24 22:45 MCHC 35.4 g/dL (30-55) 04/25/24 22:45 RDW 12.0 % (12.1-15.1) L 04/25/24 22:45 Plt Count 251 10^3/cmm (157-399) 04/25/24 22:45 MPV 9.3 fL (7.4-10.4) 04/25/24 22:45 Neut % (Auto) 82.8 % 04/25/24 22:45 Lymph % (Auto) 10.6 % 04/25/24 22:45 [place] % (Auto) 6.3 % 04/25/24 22:45 Eos % (Auto) 0.0 % 04/25/24 22:45 Baso % (Auto) 0.1 % 04/25/24 22:45 Neut # (Auto) 7.40 10^3/uL (1.8-7.7) 04/25/24 22:45 Lymph # (Auto) 1.0 10^3/uL (0.8-4.8) 04/25/24 22:45 [place] # (Auto) 0.6 10^3/uL (0.2-0.9) 04/25/24 22:45 Eos # (Auto) 0.0 10^3/uL (0.0-0.8) 04/25/24 22:45 Baso # (Auto) 0.0 10^3/uL (0.0-0.1) 04/25/24 22:45 Nucleated RBC % (auto) 0 % 04/25/24 22:45 Nucleated RBCs # 0.0 /100WBC 04/25/24 22:45 Carbon Dioxide 27 mmol/L (22-29) 04/25/24 22:45 BUN 15 mg/dL (6-20) 04/25/24 22:45 Creatinine 1.4 mg/dL (0.7-1.2) H 04/25/24 22:45 GFR Calculation 59.5 mL/min (90-130) L 04/25/24 22:45 Glucose 128 mg/dL (65-115) H 04/25/24 22:45 Calcium 9.4 mg/dL (8.5-10.5) 04/25/24 22:45 Total Bilirubin 0.6 mg/dL (0.15-1.2) 04/25/24 22:45 AST 14 U/L (0-40) 04/25/24 22:45 ALT 9 U/L (0-41) 04/25/24 22:45 Alkaline Phosphatase 71 U/L (40-130) 04/25/24 22:45 Troponin T Baseline < 6 ng/L (0-15) 04/25/24 22:45 Total Protein 6.7 g/dL (6.6-8.7) 04/25/24 22:45 Albumin 4.6 g/dL (3.5-5.2) 04/25/24 22:45 Globulin 2.1 g/dL (1.3-4.6) 04/25/24 22:45 All radiology interpretation(s) finalized by discharge Discharge Plan Discharge Patient Disposition: Home Clinical Impression: Atypical chest pain, Abnormal chest CT Condition: Stable Prescriptions: New meloxicam 7.5 mg tablet 7.5 mg PO .Twice daily Qty: 14 0RF No Action (DME) Radial Gutter Fast Form Splint See Rx Instructions .Route .MEDSUPPLY Qty: 1 0RF Rx Instructions: As directed prednisone 10 mg tablet 60 mg PO DAILY 5 Days Qty: 30 0RF levofloxacin 500 mg tablet 500 mg PO DAILY 10 Days Qty: 10 0RF Discharge Orders: Discharge ED (Routine); Ordered 04/26/24 Ordered By: Anish Byrne Referrals: Alton Easley, [employer] WILDLIFE MANAGER-C [Primary Care Provider] - 1 week Patient Instructions: Chest Pain (ED) Activity Restrictions/Additional Instructions: Your evaluation ER today was unchanged from yesterday. Please appointment with your national business director. This will be definitive treatment for anything going on in your lungs. Please continue to take your steroids and antibiotics as well as the new pain medicine has been called into the pharmacy. Coding Level of Care Code ED [employer] for José Miguel Clayton
[2024-04-25 22:56] VITALS: PULSE 92; RESP 16; O2SAT 98
[2024-04-25 23:12] LABS: Alanine Aminotransferase 9 U/L (0-41); Albumin Level 4.6 g/dL (3.5-5.2); Alkaline Phosphatase 71 U/L (40-130); Aspartate Amino Transferase 14 U/L (0-40); Blood Urea Nitrogen 15 mg/dL (6-20); Calcium 9.4 mg/dL (8.5-10.5); Carbon Dioxide 27 mmol/L (22-29); Creatinine Clr Calc Pharmacy 77.4972; Globulin 2.1 g/dL (1.3-4.6); Glomerular Filtration Rate 59.5 mL/min (90-130); Glucose 128 mg/dL (65-115); Total Bilirubin 0.6 mg/dL (0.15-1.2); Total Protein 6.7 g/dL (6.6-8.7)
[2024-04-25 23:13] LABS: Troponin(5th) Baseline < 6 ng/L (0-15)
[2024-04-25] MEDS: ketorolac 30 mg/mL INJ IVP (23:23)
[2024-04-26 00:08] VITALS: BP 122/79; PULSE 89; RESP 12; O2SAT 97
[2024-04-26 00:19] LABS: Chloride 101 mmol/L (98-107); Osmolality Calculated 288 mOsm/kg (285-295); Sodium 138 mmol/L (136-145)
[2024-04-26 00:20] VITALS: BP 119/74; PULSE 75; O2SAT 97
== END 2024-04-26 00:23 | disposition home or self-care (01) ==
PROVIDERS: Emergency Provider Emergency Medicine; PCP Nurse Practitioner
DX: R07.89 Other chest pain (principal); R93.89 Abnormal findings on diagnostic imaging of other specified body structures
CPT/HCPCS: 71045; 80053; 84484; 85025; 93005; 96374; 99285; J1885

== ENCOUNTER 2025-07-06 10:35 | Outpatient (CLI) | payer OTHER, SELFPAY ==
[2025-07-06 11:15] LABS: Hematocrit 44.5 % (37-53); Hemoglobin 15.40 g/dL (11.27-16.99); Mean Corpuscular HGB Conc 34.6 g/dL (30-55); Mean Corpuscular Hemoglobin 30.6 pg (27-33); Mean Corpuscular Volume 88.3 fl (82-101); Nucleated Red Blood Cells % 0 %; Platelet Count 267 10^3/cmm (157-399); Red Blood Count 5.04 10^6/uL (3.85-5.65); White Blood Count 9.23 10^3/uL (3.29-11.43)
[2025-07-06 13:00] LABS: Alanine Aminotransferase 9 U/L (0-41); Albumin Level 4.7 g/dL (3.5-5.2); Alkaline Phosphatase 88 U/L (40-130); Anion Gap 15.8 (5-19); Aspartate Amino Transferase 14 U/L (0-40); Blood Urea Nitrogen 11 mg/dL (6-20); Calcium 9.8 mg/dL (8.5-10.5); Carbon Dioxide 27 mmol/L (22-29); Chloride 102 mmol/L (98-107); Globulin 2.8 g/dL (1.3-4.6); Glucose 96 mg/dL (65-115); Osmolality Calculated 291 mOsm/kg (285-295); Potassium 3.8 mmol/L (3.5-5.1); Sodium 141 mmol/L (136-145); Total Protein 7.5 g/dL (6.6-8.7)
== END 2025-07-06 10:36 | disposition home or self-care (01) ==
LOC: LAB 10:38
PROVIDERS: PCP Nurse Practitioner; Visit Provider Internal Medicine Pulmonary Disease
DX: D86.9 Sarcoidosis, unspecified (principal); Z79.899 Other long term (current) drug therapy
CPT/HCPCS: 36415; 80053; 85025